=== PATIENT | female | born 1965 | race Caucasian/White ===

== ENCOUNTER 2018-05-21 21:54 | Emergency (ER) | payer SELFPAY ==
[2018-05-21 23:25] LABS: Bilirubin Negative (Negative); Blood, Urine Trace (Negative); Clarity CLEAR (Clear); Glucose, Urine (Dipstick) Negative (Negative); Leukocyte Negative (Negative); Nitrite Negative (Negative); Protein, Urine (Dipstick) Trace mg/dL (Neg-Trace)
[2018-05-21 23:27] LABS: Bacteria/HPF None Seen HPF (None Seen); Hyaline Casts/LPF 0-3 HYALINE CAST LPF (0-3 Hyaline); Pathc Cast-AUWi Flag 0.14 (0-2.49); Squamous Epithelial 0-3 HPF (0-3); WBC/HPF 0-3 HPF (0-3)
[2018-05-21 23:28] LABS: Specific Gravity, Urine 1.045 (1.002-1.036)
[2018-05-21] MEDS ORDERED: Morphine 4 MG/ML VIAL ONE (23:32)
[2018-05-21] MEDS ORDERED: Metoclopramide HCl 10 MG/2 ML VIAL ONE (23:32)
[2018-05-21 23:39] LABS: Cocaine Metabolite Screen Not Detected (NotDetected); Medtox Reader # READER 1; Methamphetamine Not Detected (NotDetected); Phencyclidine (PCP) Not Detected (NotDetected); THC/Cannabinoid Screen Not Detected (NotDetected)
[2018-05-21 23:40] LABS: Amphetamine Not Detected (NotDetected); Barbiturates Screen Not Detected (NotDetected); Benzodiazepine Screen Not Detected (NotDetected); Medtox Control Line Valid? VALID (VALID); Methadone Not Detected (NotDetected); Opiate Screen Detected (NotDetected); Oxycodone Screen Not Detected (NotDetected); Tricyclic Screen Not Detected (NotDetected)
== END 2018-05-22 02:01 | disposition home or self-care (01) ==
LOC: ERS 21:54
DX: R11.2 Nausea with vomiting, unspecified (principal); R10.13 Epigastric pain; I10 Essential (primary) hypertension; Z79.891 Long term (current) use of opiate analgesic; Z79.899 Other long term (current) drug therapy
CPT/HCPCS: 80306; 96374; 96375; J2270; J2765

== ENCOUNTER 2018-05-23 20:18 | Inpatient (IN) | payer SELFPAY ==
[2018-05-23] MEDS ORDERED: Pantoprazole 40 MG VIAL ONE (20:55)
[2018-05-23 21:22] LABS: #Eosinphils 0.5 thou/uL (0.0-0.7); #Lymphocytes 1.2 thou/uL (1.20-3.40); #Monocytes 0.6 thou/uL (0.11-0.59); #Neutrophils 7.2 thou/uL (1.40-6.50); %Basophils 0.2 % (0.0-1.0); %Eosinophils 4.8 % (0.0-10.0); %Lymphocytes 12.6 % (21.0-51.0); %Monocytes 6.2 % (0.0-10.0); %Neutrophils 76.2 % (42.0-75.0); Hemoglobin 16.1 g/dL (12.0-16.0); Mean Corpuscular HGB CONC 33.6 g/dL (32.0-36.0); Mean Corpuscular Hemoglobin 31.6 pg (27.0-31.0); Mean Platelet Volume 8.7 fL (7.4-10.4); Platelet Count 153 thou/uL (130-400); RBC Distribution Width 11.5 % (11.5-14.5); Red Blood Cell (RBC) Count 5.09 mill/uL (4.20-5.40); White Blood Cell (WBC) Count 9.5 thou/uL (4.8-10.8)
[2018-05-23] MEDS ORDERED: Metoclopramide HCl 10 MG/2 ML VIAL ONE (21:28)
[2018-05-23 21:36] LABS: ALT (SGPT) 34 U/L (8-55); AST (SGOT) 28 U/L (5-34); Albumin 4.5 g/dL (3.5-5.0); Alkaline Phosphatase 92 U/L (40-150); Anion Gap 15 mmol/L (10-20); BUN (Urea Nitrogen) 13 mg/dL (9.8-20.1); Bilirubin, Total 0.8 mg/dL (0.2-1.2); Calc. Creatinine Clearance 0 mL/min (70-130); Calcium 9.6 mg/dL (7.8-10.44); Carbon Dioxide 26 mmol/L (22-29); Chloride 99 mmol/L (98-107); Estimated GFR-MDRD 67; Globulin 3.3 g/dL (2.4-3.5); Glucose 102 mg/dL (70-105); Lipase 44 U/L (8-78); Potassium 3.1 mmol/L (3.5-5.1); Protein, Total 7.8 g/dL (6.0-8.3); Sodium 137 mmol/L (136-145)
[2018-05-23] MEDS ORDERED: clonazePAM 1 MG TAB ONE (21:42)
[2018-05-23] MEDS ORDERED: Glycopyrrolate 0.4 MG/ 2 ML VIAL SLOW IVP SCH (22:00)
[2018-05-23] MEDS ORDERED: Glycopyrrolate 0.2 MG/ML 5 ML SYRINGE SLOW IVP SCH (22:15)
[2018-05-23] MEDS ORDERED: diphenhydrAMINE 50 MG/ML VIAL ONE (23:01)
[2018-05-23 23:39] LABS: Bilirubin Negative (Negative); Blood, Urine Small (Negative); Clarity CLEAR (Clear); Glucose, Urine (Dipstick) Negative (Negative); Leukocyte Negative (Negative); Nitrite Negative (Negative); Protein, Urine (Dipstick) Negative (Neg-Trace); Specific Gravity, Urine 1.014 (1.002-1.036); Urobilinogen 0.2 mg/dL (0.2-1.0); pH, Urine 6.5 (5.0-9.0)
[2018-05-23 23:41] LABS: Bacteria/HPF None Seen HPF (None Seen); Hyaline Casts/LPF 0-3 HYALINE CAST LPF (0-3 Hyaline); Pathc Cast-AUWi Flag 0.14 (0-2.49); Squamous Epithelial 0-3 HPF (0-3); WBC/HPF 0-3 HPF (0-3)
[2018-05-24 02:11] VITALS: BMI 26.5
[2018-05-24] MEDS ORDERED: Morphine 4 MG/ML VIAL SLOW IVP SCH (02:45)
[2018-05-24] MEDS: Sodium Chloride 0.9% 1,000 ML IV SCH ×2 (03:12→11:25)
[2018-05-24] MEDS: Ondansetron PF 4 MG/2 ML Vial SLOW IVP PRN (03:13)
[2018-05-24] MEDS ORDERED: Famotidine 20 MG TAB PO SCH (09:00)
[2018-05-24] MEDS: Morphine 4 MG/ML VIAL SLOW IVP PRN ×3 (09:08→23:50)
[2018-05-24] MEDS: Enoxaparin Sodium 40 MG/0.4 ML SYRINGE SC SCH (09:09)
--- NOTE | 2018-05-24 09:20 | HP ---
CHIEF COMPLAINT: Nausea, vomiting, and abdominal pain. HISTORY OF PRESENT ILLNESS: The patient is a 52-year-old female, who lives in [place], who started having some nausea and vomiting and diarrhea approximately 10 days ago. Her diarrhea stopped in few hours, but she had more nausea and vomiting. She went to the emergency room, was treated and released home with prescription for Phenergan. Then, a couple of days later, she went back since she still had nausea, vomiting, and abdominal pain. She was sent to [facility] in [place], where she was treated and released home again. She had a CAT scan done during this time. The patient was told that there was not much going on with her and she was released home, but she had continuous nausea and vomiting along with abdominal pain and last night, she called 911 and she was taken to the emergency room in [facility] in [place] and she got admitted for further evaluation of her continuous problem. She denies any chest pain. She denies any shortness of breath. She has some hot flashes and night sweats, but otherwise she does not have any other issues. The pain in her abdomen is still the same, it is rated at 10 and continuous, is more located in the epigastric area than in hypogastric area. She never had this kind of problem before. PAST MEDICAL HISTORY: Negative. PAST SURGICAL HISTORY: She had 3 C-sections, cholecystectomy, and left ankle reconstruction surgery post trauma. MEDICATIONS: 1. Citalopram for her menopause. 2. [place] p.r.n. for her left ankle pain, she has on and off. FAMILY HISTORY: Father of heart disease at the age of 58 and mother fell and had multiple wounds and she never recovered and she passed at the age of 72. Her brother had a stroke at the age of 44. SOCIAL HISTORY: She denies any alcohol intake, cigarette smoking, or illicit drug use. ALLERGIES: NONE. REVIEW OF SYSTEMS: All 14 systems were reviewed and they were negative except for symptoms mentioned in HPI. PHYSICAL EXAMINATION: GENERAL: She looks sick and very uncomfortable. VITAL SIGNS: Her blood pressure is 142/83, temperature is 98.6, maximal temperature since admission is 99.9 of this morning, pulse 76, respirations 18, and O2 saturation is 93% on room air. HEENT: Head is atraumatic and normocephalic. Eyes are PERRLA. Sclerae are nonicteric. Conjunctivae pinkish. Oral mucosa is dry. NECK: Supple. LUNGS: Clear. HEART: S1 and S2 normal. No S3. No S4. No any murmur. ABDOMEN: Relatively soft and tender to palpation mostly in the epigastric area across the abdomen. There is no guarding. No masses. Peristalsis is very sluggish. EXTREMITIES: No clubbing, cyanosis, or edema. She has good pulses on both tibialis posterior and dorsalis pedis arteries similar bilaterally. NEUROLOGIC: She is alert and oriented x4. There is no any motor or sensory deficits present. Cranial nerves are intact. LABORATORY DATA: Labs showed white count of 9.5, hemoglobin 16.1, hematocrit 47.9, and platelet count is 153,000. Sodium of 137, potassium 3.1, chloride 99, CO2 of 26, and BUN 13. The rest of chemistry within normal limits. Lactic acid 1.5 and lipase 44. Urinalysis showed 15 of ketones and small amount of blood, and no other abnormalities. The CT of the abdomen was done on the May 21, which showed some granulomatous calcifications in the pancreas, atrophic left kidney, and mild left hydronephrosis, which is unchanged: Was mostly nondistended with some mural thickening in the lower descending colon and sigmoid, although the findings of colitis noticed previously have significantly improved. Also, there were some scattered diverticula. According to the previous CAT scan, which I could not localize with radiologist make some comments that there was significant improvement in the colitis involving the sigmoid colon when compared to April 19, 2018, imaging. Electrocardiogram showed normal sinus rhythm with some prolongation of QT interval. This was personally reviewed by me. IMPRESSION: Abdominal pain with nausea and vomiting with some residual findings of colitis according to the CAT scan, which was done a few days ago. The patient is doing somewhat better after IV fluids and the pain medications. PLAN: Plan is to admit her for observation. Condition is fair. Activity, bedrest and bathroom privileges. IV fluids, normal saline at 125 mL/h. Morphine p.r.n. for pain management. GI consult with Dr. Maciel, who is on-call today and DVT prophylaxis with SCDs and Lovenox. Job ID: [id number]
[2018-05-24 09:46] LABS: #Eosinphils 0.3 thou/uL (0.0-0.7); #Lymphocytes 1.7 thou/uL (1.20-3.40); #Monocytes 0.8 thou/uL (0.11-0.59); #Neutrophils 6.2 thou/uL (1.40-6.50); %Basophils 0.4 % (0.0-1.0); %Eosinophils 3.4 % (0.0-10.0); %Lymphocytes 18.6 % (21.0-51.0); %Monocytes 8.6 % (0.0-10.0); Hemoglobin 13.6 g/dL (12.0-16.0); MDiff Complete? YES; Mean Corpuscular HGB CONC 34.7 g/dL (32.0-36.0); Mean Corpuscular Hemoglobin 32.6 pg (27.0-31.0); Mean Corpuscular Volume 93.8 fL (78.0-98.0); Platelet Count 117 thou/uL (130-400); Platelet Morphology Comment Appears Decreased; RBC Distribution Width 11.4 % (11.5-14.5); Red Blood Cell (RBC) Count 4.17 mill/uL (4.20-5.40)
[2018-05-24 10:02] LABS: ALT (SGPT) 24 U/L (8-55); AST (SGOT) 25 U/L (5-34); Albumin 3.7 g/dL (3.5-5.0); Alkaline Phosphatase 73 U/L (40-150); Anion Gap 16 mmol/L (10-20); BUN (Urea Nitrogen) 12 mg/dL (9.8-20.1); Bilirubin, Total 0.6 mg/dL (0.2-1.2); Calc. Creatinine Clearance 91 mL/min (70-130); Calcium 8.8 mg/dL (7.8-10.44); Carbon Dioxide 20 mmol/L (22-29); Chloride 104 mmol/L (98-107); Estimated GFR-MDRD 82; Globulin 2.7 g/dL (2.4-3.5); Glucose 84 mg/dL (70-105); Magnesium 1.9 mg/dL (1.6-2.6); Potassium 3.2 mmol/L (3.5-5.1); Protein, Total 6.4 g/dL (6.0-8.3); Sodium 137 mmol/L (136-145)
[2018-05-24] MEDS ORDERED: Potassium Chloride 20 MEQ in Premix Bag 1 BAG IVPB SCH (12:15)
[2018-05-24] MEDS ORDERED: Potassium Chloride 10 MEQ in Dextrose 5% in Water 1,000 ML IV SCH (17:15)
[2018-05-24] MEDS ORDERED: Potassium Chloride 20 MEQ in Dextrose 5% in Water 1,000 ML IV SCH (19:15)
[2018-05-24] MEDS ORDERED: GoLYTELY 4,000 ml Bottle PO SCH (19:30)
[2018-05-24] MEDS: Dextrose 5% w/ 20 mEq KCl 1,000 ML IV SCH (19:53)
[2018-05-24] MEDS: Pantoprazole 40 MG VIAL IVP SCH (20:38)
[2018-05-24] MEDS: diphenhydrAMINE 50 MG/ML VIAL IVP PRN (23:44)
--- NOTE | 2018-05-24 23:44 | CON ---
DATE OF CONSULTATION: 05/24/2018 This is a GI consult at the request of Dr. Yamile Fernández. HISTORY OF PRESENT ILLNESS: Ms. Mcwilliams is a 52-year-old female who was admitted to the hospital last night for refractory vomiting and abnormal CAT scan. She states that she became ill about 10 days ago when she had sudden onset of vomiting and diarrhea. She estimates she threw up about 20 or 30 times a day and ultimately had to go to the emergency room in [place]. There, she was treated with IV fluids and ultimately released and told that this is most likely a viral illness. She did have a CAT scan at that time that showed some edema in the mesentery just above the affected portion of sigmoid colon, which did show have colitis involving the mid and distal sigmoid colon and rectum. She also mild left hydronephrosis, distended urinary bladder, atrophic but functioning left kidney, small amount of free fluid in the cul-de-sac. She had no leukocytosis at that time. The patient denies did not have any sick contacts. She was under increased stress. She had actually just talked to her sister that day, who has some cancer, who has returned surgery; she lives is out of state. Actually, it is an aunt, but she raised as a sister. Also, she is under more stress with going through a divorce. She denies any prior history of stomach problems or intestinal problems reviewing the previous imaging studies at this hospital back in 05/2014, she had a CAT scan, also performed in [place] when she presented with nausea, vomiting, that showed colonic wall thickening of the descending and sigmoid colon with subtle pericolonic fat stranding of unclear etiology. Asking her about this, she states she has never had an issue with chronic diarrhea, recurrent diarrhea, or bloody stools. She has never had a colonoscopy before. She denies any prior knowledge of Crohn's or ulcerative colitis. In any event, after the first visit to the emergency room at the end of March, she re-presented at the end of April on the . At that time, she had a second CAT scan and that is the one she describes just recently. At that time, the patient was transferred over to [facility] because she was having persistent vomiting, epigastric pain, and ultimately history of IV fluids, Reglan and released home, that was in the 1st. She, however, re-presented back to the hospital yesterday and then was transferred back here for admission. Presently, she states after receiving potassium and IV fluids, she feels better. She is also receiving some morphine. She states that the epigastric pain which is all in the upper abdomen is difficult for her to describe, but feels like a tearing or burning like pain. She denies any fever or chills. She denies any overt diarrhea, but she states she has not vomited since she has been here and feels much better and has an appetite and wants to eat. She is on chronic [place]. She has denies running out of that or having withdrawal from that. She states that is from her primary physician in [place] for chronic right foot pain. She denies alcohol use. She denies significant tobacco use or other drug use. PAST MEDICAL HISTORY: Otherwise negative. PAST SURGICAL HISTORY: Three C sections, cholecystectomy, left ankle surgery post trauma. MEDICATIONS AT HOME: Citalopram which she takes since she went through menopause, it help with mood and [place]. Present medications; 1. Lovenox. 2. Morphine. 3. Zofran. 4. Potassium, she received 1 L of fluid, now it has been stopped. FAMILY HISTORY: Father of heart disease at 58. Mother fell and had multiple wounds and she never recovered and she passed at the age of 72. Brother had stroke at 44. She had an aunt recently who has been diagnosed with rectal cancer in her 50s. SOCIAL HISTORY: Denies any alcohol. She denies smoking. She denies using drugs or marijuana. ALLERGIES: NONE. REVIEW OF SYSTEMS: Negative for headaches, vision changes, fever, or chills. She has lost about 25 pounds recently, stress going through divorce and maybe 10 pounds of this illness. She denies chest pain, shortness of breath, or dyspnea on exertion. 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 She denies any reflux, dysphagia, or odynophagia. She denies any postprandial abdominal pains on a regular basis. She denies any diarrhea on a regular basis or constipation. She has had no rectal bleeding or melena or hematochezia or hematemesis. She denies dysuria, frequency, or urgency. She has no known knowledge of kidney problems, although she does have an atrophic left kidney, mild left hydroureter. She denies any arthralgias, myalgias, or rashes other than a left ankle injury. PHYSICAL EXAMINATION: VITAL SIGNS: Temperature 98, pulse 68, and blood pressure 158/89. LUNGS: Clear. HEART: Regular rate and rhythm. No rubs, gallops, or murmurs. ABDOMEN: Soft. No tenderness, rebound, or guarding. EXTREMITIES: No clubbing, cyanosis, or edema. LABORATORY STUDIES: Sodium 137; potassium 3.2, it was 3.1 yesterday, 3.4 on the ; BUN and creatinine are 12 and 0.74. Liver function tests normal. Albumin 3.2, total protein is 6.4 back on 05/21. Her total protein is 8.4, albumin is 4.4. Lipase is 44. TSH was 0.8. Magnesium was 1.9. Toxicology on 05/21, was negative except for opiates. Urinalysis normal except for 15 ketones, small blood on the UA on 05/23. CAT scan of the abdomen and pelvis from 05/21 was reviewed, films reviewed as well. Some minimal thickening left colon, possibly represent some residual colitis based on the CT from end march. However, there was poor distention at that time as well. ASSESSMENT: Nausea and vomiting, it is unclear if this is a postviral gastroparesis. It does not seem that she has was having withdrawal episodes from her narcotics, which she is on chronically. She probably is very dehydrated and got electrolyte depleted and just could not overcome that. She also is under stress with divorce going on and a sister/aunt who is going through cancer right now. The possibility of inflammatory bowel disease is something to be considered as she has had sigmoid thickening in her sigmoid colon for many years back in 2014, and in March of this year and April this year. RECOMMENDATIONS: 1. I would continue IV fluids. Check her magnesium and phosphorus. She needs IV fluids, potassium. She has been throwing up for 10 days. She needs a PPI and she needs an EGD tomorrow to make sure she does not have a Bee or other etiologies for vomiting. If she does not have any findings there and keep some vomiting, an ultrasound of the gallbladder to rule out gallstone disease would be reasonable. 2. With regard to her colon changes noted on three different CAT scans since 2014 with family history of colon cancer, and the young age, I have recommended she have a colonoscopy. She thinks she can do the prep now. She is not nauseated. If she cannot, we will have to defer that to a later time. Job ID: [id number]
[2018-05-25] MEDS: Ondansetron PF 4 MG/2 ML Vial SLOW IVP PRN ×3 (00:52→20:04)
[2018-05-25] MEDS ORDERED: hydrALAZINE 20 MG/ML VIAL SLOW IVP SCH (03:00)
[2018-05-25] MEDS: Acetaminophen/Codeine 30-300mg Tablet PO PRN ×2 (03:13→21:16)
[2018-05-25] MEDS ORDERED: diphenhydrAMINE 50 MG/ML VIAL IVP SCH (04:15)
[2018-05-25] MEDS: Morphine 4 MG/ML VIAL SLOW IVP PRN ×3 (04:22→20:10)
[2018-05-25] MEDS: Dextrose 5% w/ 20 mEq KCl 1,000 ML IV SCH ×3 (05:53→21:14)
--- NOTE | 2018-05-25 08:14 | PRG ---
DATE OF SERVICE: 05/25/2018 SUBJECTIVE: The patient vomited last night. She did not get much sleep. She is getting ready for her EGD this morning. OBJECTIVE: VITAL SIGNS: Blood pressure is 151/85, temperature is 98, respiratory rate is 16, pulse is 76, and O2 saturation is 95% on room air. HEENT: Head is atraumatic and normocephalic. Eyes are PERRLA. Sclerae are nonicteric. Oral mucosa is dry. NECK: Supple. LUNGS: Clear. HEART: S1 and S2 normal. ABDOMEN: Soft, it is tender in hypogastric area. No guarding. No masses. EXTREMITIES: No clubbing, cyanosis, or edema. NEUROLOGICAL: She is alert and oriented x4. There is no any sensory or motor deficits present. Cranial nerves are intact. LABORATORY DATA: Pending. IMPRESSION AND PLAN: Abdominal pain with nausea and vomiting. The patient is going to have esophagogastroduodenoscopy done this morning by Dr. Maciel. We will continue IV fluids and antiemetics. We will continue morphine p.r.n. for pain management. Continue deep vein thrombosis prophylaxis with SCDs and Lovenox. We will obtain abdominal ultrasound. Job ID: [id number]
[2018-05-25 08:50] LABS: Phosphorus 2.8 mg/dL (2.3-4.7)
[2018-05-25 08:57] LABS: ALT (SGPT) 25 U/L (8-55); AST (SGOT) 21 U/L (5-34); Alkaline Phosphatase 81 U/L (40-150); Anion Gap 12 mmol/L (10-20); BUN (Urea Nitrogen) 7 mg/dL (9.8-20.1); Bilirubin, Total 0.7 mg/dL (0.2-1.2); Calc. Creatinine Clearance 91 mL/min (70-130); Calcium 9.3 mg/dL (7.8-10.44); Carbon Dioxide 25 mmol/L (22-29); Chloride 98 mmol/L (98-107); Estimated GFR-MDRD 82; Globulin 3.1 g/dL (2.4-3.5); Glucose 117 mg/dL (70-105); Potassium 3.3 mmol/L (3.5-5.1); Protein, Total 7.1 g/dL (6.0-8.3); Sodium 132 mmol/L (136-145)
--- NOTE | 2018-05-25 10:44 | ULT ---
ABDOMINAL ULTRASOUND: 05/25/2018 PROVIDED CLINICAL HISTORY: Abdominal pain. CORRELATION: 05/21/2018 FINDINGS: The visualized abdominal aorta, IVC, and pancreas appear normal. The liver demonstrates no evidence for mass or intrahepatic biliary ductal dilatation. The common du ct is not dilated. The gallbladder is not visualized, compatible with the provided clinical history of a prior cholecystectomy. The kidneys demonstrate no evidence for mass. The left kidney is small, with respect to the right, m easuring about 9.2 cm in craniocaudal dimension versus 12.1 cm on the right. Fullness of the left re nal collecting system is similar to the CT examination and is of uncertain significance. The spleen is normal in size and demonstrates granulomata. IMPRESSION: 1. Renal size asymmetry, left smaller than right. 2. Prominence of the left renal collecting system, similar to the prior examination and of uncertain significance. POS: [facility]
[2018-05-25] MEDS: Pantoprazole 40 MG VIAL IVP SCH ×2 (12:14→20:06)
[2018-05-25] MEDS: Enoxaparin Sodium 40 MG/0.4 ML SYRINGE SC SCH (12:14)
[2018-05-25] MEDS: Citalopram 20 MG TAB PO SCH (12:14)
--- NOTE | 2018-05-25 12:59 | OP ---
DATE OF PROCEDURE: 05/25/2018 PREPROCEDURE DIAGNOSES: 1. Persistent nausea and vomiting for over 10 days. 2. Family history of colon cancer, and secondary role of a young age. 3. Reported thickening of the descending and sigmoid colon consistent with colitis on CT. POSTPROCEDURE DIAGNOSES: 1. Severe distal esophagitis with erosions and exudate consistent with a emetogenic injury. Biopsies obtained. 2. Otherwise normal esophagus. 3. Normal stomach from retroflexed views. 4. Normal duodenum to the third portion. 5. Normal ileum and colonoscopy with no signs of colitis. RECOMMENDATIONS: 1. IV fluids. 2. PPI. 3. Clear liquids. 4. Emetic control. 5. If nausea, vomiting persists, consider imaging of the brain, consider narcotic withdrawal. Consider gastroparesis. ANESTHESIA: TIVA. DESCRIPTION OF PROCEDURE: The patient was informed of the risks, benefits, possible complications of endoscopy including perforation, perforation risk, medication aspiration, informed consent was obtained. The patient was brought to endoscopy suite where she was sedated in gradual fashion. Once she was comfortable, a bite block was placed inside her orifice. The endoscope was advanced to the esophagus, stomach, second and third portion of the duodenum and slowly removed. The prep was good. There was no residual food or material in the stomach. There was no signs of gastritis, erosions, or ulcers. Retroflexed views in the stomach were normal. The duodenum was normal at 3rd portion. The scope was brought to the esophagus where there was some erythema and exudate in the distal esophagus and mid esophagus consistent with emetogenic injury and reflux probably from repetitive vomiting. Biopsies were taken and submitted to Pathology. The scope was removed. The patient was turned to the room and a rectal exam was performed which was normal. The scope was advanced through the colon to the cecum, which was identified by the ileocecal valve, appendiceal orifice. The prep was fair to poor. About a L fluid used to irrigate the colon, looked clear up as best we could. This was adequate to identify polyps greater than 7 mm in size. There was no evidence of ileitis. The colon was normal. There was no signs of diverticulitis or colitis. Retroflexed views in the rectum were normal. The scope was removed. The patient tolerated the procedure well. There were no complications. Job ID: [id number]
[2018-05-25] MEDS: Potassium Chloride 20 MEQ TAB PO SCH ×2 (15:25→15:28)
[2018-05-25] MEDS ORDERED: PROPOFOL 200 MG/20 ML VIAL ONE (15:29)
[2018-05-25] MEDS ORDERED: Esmolol 100 MG/10 ML VIAL ONE (15:29)
[2018-05-25] MEDS ORDERED: ALPRAZolam 0.5 MG TAB PO SCH (17:30)
[2018-05-25] MEDS: diphenhydrAMINE 50 MG/ML VIAL IVP PRN (21:14)
[2018-05-26] MEDS: Morphine 4 MG/ML VIAL SLOW IVP PRN (00:55)
[2018-05-26] MEDS: Acetaminophen/Codeine 30-300mg Tablet PO PRN ×2 (05:41→13:02)
[2018-05-26] MEDS: Dextrose 5% w/ 20 mEq KCl 1,000 ML IV SCH ×2 (07:34→20:11)
[2018-05-26] MEDS: Citalopram 20 MG TAB PO SCH (07:34)
[2018-05-26] MEDS: Enoxaparin Sodium 40 MG/0.4 ML SYRINGE SC SCH (07:35)
[2018-05-26] MEDS: Pantoprazole 40 MG VIAL IVP SCH ×2 (07:35→20:10)
[2018-05-26 10:00] LABS: Anion Gap 12 mmol/L (10-20); BUN (Urea Nitrogen) 6 mg/dL (9.8-20.1); Calc. Creatinine Clearance 86 mL/min (70-130); Calcium 9.6 mg/dL (7.8-10.44); Carbon Dioxide 26 mmol/L (22-29); Chloride 98 mmol/L (98-107); Estimated GFR-MDRD 76; Glucose 120 mg/dL (70-105); Magnesium 2.2 mg/dL (1.6-2.6); Phosphorus 3.1 mg/dL (2.3-4.7); Potassium 3.3 mmol/L (3.5-5.1); Sodium 133 mmol/L (136-145)
--- NOTE | 2018-05-26 13:43 | PRG ---
DATE OF SERVICE: 05/26/2018 SUBJECTIVE: The patient is seen and examined at bedside. She vomited yesterday after she had broth. She is feeling slightly better this morning. OBJECTIVE: VITAL SIGNS: Blood pressure is 117/76, pulse is 71, temperature is 97.9, respirations 16, and O2 saturation is 96% on room air. HEENT: Her head is atraumatic and normocephalic. Eyes are PERRLA. Sclerae are nonicteric. Oral mucosa is moist. NECK: Supple. No lymphadenopathy. Thyroid is not palpable. LUNGS: Clear. HEART: S1 and S2 are normal. ABDOMEN: Soft and nontender. Bowel sounds are present. No organomegaly. EXTREMITIES: No clubbing, cyanosis, or edema. NEUROLOGIC: She is alert and oriented x4. There are no any motor or sensory deficits. Cranial nerves are intact. LABORATORY DATA: Labs showed a sodium of 133, potassium 3.3, chloride 96, CO2 of 26, BUN 6, creatinine 0.79, glucose 120, and the rest of chemistry within normal limits. Phosphorus 3.1 and magnesium 2.2. IMPRESSION: Nausea and vomiting with some abdominal pain. The patient was scoped yesterday and beside of severe esophagitis secondary to vomiting, there were no any other findings on EGD and colonoscopy. Ultrasound of the abdomen showed prominence of the left renal collecting system, which is similar to the prior examination and of uncertain significance. PLAN: Plan is to continue IV fluids. Obtain radionuclide gastric emptying studies to rule out gastroparesis and if this is negative, probably we will have to get Urology consultation if the ultrasound findings contribute to this vomiting and for now, we will continue antiemetics p.r.n. Job ID: [id number]
--- NOTE | 2018-05-26 15:42 | EKG ---
Test Reason : Blood Pressure : / mmHG Vent. Rate : 073 BPM Atrial Rate : 073 BPM P-R Int : 134 ms QRS Dur : 078 ms QT Int : 440 ms P-R-T Axes : 060 054 048 degrees QTc Int : 484 ms Normal sinus rhythm Prolonged QT Abnormal ECG Confirmed by MATTHEW TRIPATHI ([id number]) on 05/26/2018 3:41:57 PM Referred By: RUSLAN Confirmed By:MATTHEW TRIPATHI
--- NOTE | 2018-05-26 19:54 | PRG ---
DATE OF SERVICE: 05/26/2018 SUBJECTIVE: Ms. Mcwilliams is resting in bed. Today is first day. She states she has not thrown up. OBJECTIVE: VITAL SIGNS: Temperature is 98, pulse 78, blood pressure is 106/62. LUNGS: Clear. HEART: Regular rate and rhythm. ABDOMEN: Soft and nontender. LABORATORY DATA: Sodium 133, potassium 3.3, BUN and creatinine are 6 and 0.79. ASSESSMENT: 1. Hypokalemia, being replaced. 2. Nausea and vomiting, improving. It is unclear, the etiology of this. Upper endoscopy yesterday was not revealing. She has a gastric emptying scan ordered by Internal Medicine for tomorrow. 3. Abdominal pain, seems to be markedly improved. RECOMMENDATIONS: Wean off the morphine. It is going to make her gastric emptying scan really not interpretable, so we will go and stop that tonight. Job ID: [id number]
[2018-05-26] MEDS: Acetaminophen 325 MG TAB PO PRN (20:11)
[2018-05-27] MEDS: Dextrose 5% w/ 20 mEq KCl 1,000 ML IV SCH ×2 (05:55→18:23)
[2018-05-27] MEDS: Ondansetron PF 4 MG/2 ML Vial SLOW IVP PRN ×3 (08:14→17:15)
[2018-05-27] MEDS: Pantoprazole 40 MG VIAL IVP SCH ×3 (08:15→20:13)
[2018-05-27] MEDS: Citalopram 20 MG TAB PO SCH (08:15)
[2018-05-27] MEDS: Enoxaparin Sodium 40 MG/0.4 ML SYRINGE SC SCH (08:15)
--- NOTE | 2018-05-27 10:16 | NM ---
NUCLEAR MEDICINE GASTRIC EMPTYING STUDY WITH MEAL: HISTORY: Vomiting. COMPARISON: Abdomen and pelvis CT from 05/21/2018. FINDINGS: The patient was given 2.1 millicuries of technetium 99m sulfur colloid orally in eggs. The patient v omited 5 minutes after the immediate image. IMPRESSION: Incomplete examination as the patient vomited the radiotracer. POS: [facility]
[2018-05-27] MEDS ORDERED: Promethazine HCl 25 MG/ML VIAL IM/IV PRN ×2 (10:51→17:00)
[2018-05-27] MEDS: diphenhydrAMINE 50 MG/ML VIAL IVP PRN ×2 (11:30→18:24)
[2018-05-27] MEDS: Acetaminophen 325 MG TAB PO PRN ×2 (12:50→20:12)
[2018-05-27] MEDS ORDERED: Promethazine HCl 25 MG/ML VIAL IM SCH (13:15)
--- NOTE | 2018-05-27 15:39 | PRG ---
DATE OF SERVICE: 05/27/2018 SUBJECTIVE: The patient was seen and examined at bedside. She is not doing well. She was not able to finish her gastric emptying studies. This morning, she started vomiting again. OBJECTIVE: VITAL SIGNS: Blood pressure is 168/84, pulse is 84, respiratory rate is 16, O2 saturation is 96 on room air. HEENT: Head is atraumatic and normocephalic. Eyes are PERRLA. Sclerae nonicteric. Oral mucosa is dry. NECK: Supple. No lymphadenopathy. LUNGS: Clear. HEART: S1 and S2 normal. ABDOMEN: Soft. Slightly tender in the epigastric area to be center. No guarding. No masses. EXTREMITIES: No clubbing, cyanosis, or edema neurological examination she is alert and oriented x4. There is no any motor or sensory deficits present. Cranial nerves are intact. LABORATORY DATA: None today. IMPRESSION: Intractable nausea and vomiting of unclear etiology with negative GI workup. The patient was not able to complete her gastric emptying studies and we will continue IV fluids. We will add Phenergan to Zofran, so we will admit her to full admission from observation and try a her gastric emptying studies tomorrow if she is more stable. Job ID: [id number]
[2018-05-27 16:17] LABS: Anion Gap 15 mmol/L (10-20); BUN (Urea Nitrogen) 8 mg/dL (9.8-20.1); Calc. Creatinine Clearance 86 mL/min (70-130); Calcium 10.1 mg/dL (7.8-10.44); Carbon Dioxide 25 mmol/L (22-29); Chloride 99 mmol/L (98-107); Estimated GFR-MDRD 76; Glucose 149 mg/dL (70-105); Potassium 3.8 mmol/L (3.5-5.1); Sodium 135 mmol/L (136-145)
[2018-05-27] MEDS ORDERED: Promethazine HCl 12.5 MG in Sodium Chloride 0.9% 50 ML IVPB PRN (17:02)
[2018-05-27] MEDS ORDERED: Metoclopramide HCl 10 MG/2 ML VIAL IVP PRN (17:12)
--- NOTE | 2018-05-27 18:31 | CT ---
HEAD CT WITHOUT CONTRAST 05/27/18 HISTORY: Refractory vomiting. Nausea. Headache. COMPARISON: None. FINDINGS: calvarium appears to be intact. Adequate aeration of the sinuses and mastoid air cells. No parenchymal hemorrhage. No extra-axial hematoma. No midline shift. Basilar cisterns are patent. Br ain volume, age appropriate. Cortical renae-white matter differentiation is preserved. Ventricles and sulci are patent and symmetric. IMPRESSION: No acute intracranial process. POS: [facility]
[2018-05-27] MEDS ORDERED: hydrALAZINE 20 MG/ML VIAL SLOW IVP PRN (20:37)
--- NOTE | 2018-05-28 00:33 | PRG ---
DATE OF SERVICE: 05/27/2018 SUBJECTIVE: Ms. Mcwilliams says she has had a bad day. She has been throwing up all day. I have asked her why, she states because her stomach hurts. She denies any headache. They have tried Phenergan 6.25 IM, and Phenergan 12.5 IV has been tried, Zofran 4. Other medications, she is still on Tylenol IV q.12. OBJECTIVE: VITAL SIGNS: Temperature is 98, pulse 66, respiratory rate 16, blood pressure 172/101. GENERAL: She is resting comfortably in bed. She is alert and oriented to person, place, and time. HEENT: Conjunctivae and sclerae are clear. Mucous membranes are somewhat dry. SKIN: Warm and dry. ABDOMEN: Nontender. There is no rebound. There is no guarding. LABORATORY STUDIES: There has been no CBC since the . Sodium 135, potassium 3.8, BUN and creatinine are 8 and 0.79, calcium is 10. Liver function tests are normal, lipase is normal previously. Results back from endoscopy, showed mild reflux esophagitis, presumptively from vomiting and GERD. ASSESSMENT: Persistent nausea. This was doing well yesterday, when I saw her, the only thing that is changed really in the past 24 hours medication adorno is her morphine was discontinued, she was using that about every 4 to 6 hours 2 mg. She had a CAT scan with no abnormalities abdominally. She has had upper and lower endoscopies, negative. She has had an ultrasound of her abdomen, showed a little renal asymmetry and evidence of previous cholecystectomy. She had a normal lipase. She is going through divorce now. Differential diagnosis includes depression, anxiety leading to nausea and vomiting, narcotic withdrawal or dependence leading to nausea and vomiting. Intracranial process maybe needs to beruled out. We will go ahead and get a CAT scan. RECOMMENDATIONS: For controlling symptoms, I do not agree with placing an NG tube. She can continue on IV fluids. Her CBC needs to be checked tomorrow and we will give her some IV Reglan efrain Job ID: [id number]
[2018-05-28] MEDS: diphenhydrAMINE 50 MG/ML VIAL IVP PRN (01:00)
[2018-05-28] MEDS: Acetaminophen 325 MG TAB PO PRN (02:16)
[2018-05-28 05:49] LABS: #Eosinphils 0.1 thou/uL (0.0-0.7); #Lymphocytes 2.2 thou/uL (1.20-3.40); #Monocytes 0.8 thou/uL (0.11-0.59); #Neutrophils 8.8 thou/uL (1.40-6.50); %Basophils 0.4 % (0.0-1.0); %Eosinophils 0.6 % (0.0-10.0); %Lymphocytes 18.4 % (21.0-51.0); %Monocytes 6.7 % (0.0-10.0); %Neutrophils 73.9 % (42.0-75.0); Hemoglobin 14.7 g/dL (12.0-16.0); Mean Corpuscular Hemoglobin 32.6 pg (27.0-31.0); Mean Corpuscular Volume 95.6 fL (78.0-98.0); Mean Platelet Volume 8.9 fL (7.4-10.4); Platelet Count 230 thou/uL (130-400); RBC Distribution Width 11.4 % (11.5-14.5); Red Blood Cell (RBC) Count 4.51 mill/uL (4.20-5.40); White Blood Cell (WBC) Count 11.9 thou/uL (4.8-10.8)
[2018-05-28] MEDS: Dextrose 5% w/ 20 mEq KCl 1,000 ML IV SCH (05:51)
[2018-05-28 06:10] LABS: ALT (SGPT) 33 U/L (8-55); AST (SGOT) 24 U/L (5-34); Albumin 4.2 g/dL (3.5-5.0); Alkaline Phosphatase 80 U/L (40-150); Anion Gap 13 mmol/L (10-20); BUN (Urea Nitrogen) 8 mg/dL (9.8-20.1); Bilirubin, Total 0.7 mg/dL (0.2-1.2); Calc. Creatinine Clearance 88 mL/min (70-130); Calcium 9.7 mg/dL (7.8-10.44); Carbon Dioxide 26 mmol/L (22-29); Chloride 97 mmol/L (98-107); Estimated GFR-MDRD 78; Glucose 145 mg/dL (70-105); Potassium 3.2 mmol/L (3.5-5.1); Protein, Total 7.2 g/dL (6.0-8.3); Sodium 133 mmol/L (136-145)
[2018-05-28] MEDS: Pantoprazole 40 MG VIAL IVP SCH (09:02)
[2018-05-28] MEDS: Enoxaparin Sodium 40 MG/0.4 ML SYRINGE SC SCH (09:04)
[2018-05-28] MEDS: rOPINIRole HCl 0.25 MG TAB PO SCH ×2 (10:29→15:57)
[2018-05-28 15:34] VITALS: BP 127/81; TEMP 97.9
--- NOTE | 2018-05-29 08:15 | DIS ---
DATE OF ADMISSION: 05/27/2018 DATE OF DISCHARGE: 05/28/2018 FINAL DIAGNOSES: 1. Intractable nausea and vomiting of unclear etiology. We think that this is psychologic related to her current condition. She is going through a bad divorce. 2. Hypokalemia, replaced. 3. Hyponatremia, replaced. CONSULTANTS: Ruy Maciel MD of Gastrointestinal Service. PROCEDURE: EGD, which showed severe distal esophagitis with erosions and exudate consistent with emetogenic injury, otherwise normal EGD and normal colonoscopy. No signs of colitis. HISTORY OF PRESENT ILLNESS: The patient is a 52-year-old female, who was admitted to the hospital with a 10-day history of nausea, vomiting, and some diarrhea. The diarrhea stopped quickly. She went to emergency room several times. Finally, she called EMS and came to [facility] in [place]. She had a CAT scan done in the emergency room and apparently showed significant improvement with colitis she was diagnosed on some previous recent imaging in the area of sigmoid colon when comparing to April 19, 2018. She was admitted to the hospital for management of her problem with IV fluids, she received in the emergency room. Her white count at the time of admission was 9.5, hemoglobin 16.1, hematocrit 47.9, and platelet count 153,000. Sodium was 137, potassium 3.1, chloride 99, CO2 is 26, BUN 13, lactic acid was 1.5. Urinalysis showed 15 of ketones and small amount of blood. CT of the abdomen, which was done on the 21 of May showed some granulomatous calcification in the pancreas, atrophic left kidney, and mild left hydronephrosis, which was unchanged with the previous study. There was some mural thickening in the lower descending colon and sigmoid, although the findings of colitis were noticed significantly improved comparing to the previous study. Electrocardiogram showed normal sinus rhythm with some prolongation of QT interval. Got admitted to the hospital. Her potassium was replaced. She was given IV fluids and was given some Zofran and some Phenergan. Exploration Engineer was consulted, who did the scoping, which did not show any etiology of her vomiting, only severe esophagitis secondary to vomiting. Colonoscopy was negative too. She underwent ultrasound of the abdomen, which showed some renal size asymmetry, left smaller than right and prominence of the left renal collecting system. Also, she tried to have gastric emptying studies, but she was not able to keep anything down after she was given the bolus to swallow, so this was canceled. She also underwent CT of the brain, which did not show any acute abnormalities. Finally, her vomiting subsided and she is ready to go. PHYSICAL EXAMINATION: VITAL SIGNS: Her blood pressure is 127/81, pulse is 95, temperature is 97.9, respiratory rate is 14, and O2 saturation is 94% on room air. She is seen and examined before she is discharged. LUNGS: Clear. ABDOMEN: Soft, nontender. EXTREMITIES: No clubbing, cyanosis, or edema. DIET: She is discharged on a regular diet. ACTIVITIES: As tolerated. MEDICATIONS AT THE TIME OF DISCHARGE: 1. Promethazine 25 mg per rectum q.6 hours p.r.n. as needed. 2. Tylenol just plain regular for the pain. 3. Ropinirole 0.25 mg 3 times a day. FOLLOWUP: She is going to follow up with her primary care physician in a week and we do not want her to take any opioids for the pain or SSRI's she was taking at home prior to this hospitalization and the patient was seen and examined before she is discharged. TIME SPENT: Discharge time is less than 30 minutes. Job ID: [id number]
== END 2018-05-28 18:05 | disposition home or self-care (01) | DRG 392 ==
LOC: ERS 20:18 → SURG B 05-24 00:13 → OBSVTOIN 05-27 17:14
PROVIDERS: ADMIT Hospitalist; ATTEND Hospitalist
PROC: 0DB38ZX Excision of Lower Esophagus, Via Natural or Artificial Opening Endoscopic, Diagnostic (ICD-10-PCS; principal; 2018-05-25)
PROC: 0DJD8ZZ Inspection of Lower Intestinal Tract, Via Natural or Artificial Opening Endoscopic (ICD-10-PCS; 2018-05-25)
DX: R11.2 Nausea with vomiting, unspecified (principal); E87.1 Hypo-osmolality and hyponatremia; K22.10 Ulcer of esophagus without bleeding; N13.4 Hydroureter; E87.6 Hypokalemia; R19.7 Diarrhea, unspecified; F32.9 Major depressive disorder, single episode, unspecified; R10.9 Unspecified abdominal pain; K21.9 Gastro-esophageal reflux disease without esophagitis
CPT/HCPCS: 36415; 51701; 70450; 76700; 78264; 80048; 80053; 81003; 81015; 83605; 83690; 83735; 84100; 85025; 88305; 88312; 88313; 88341; 88342; 93005; 93010; 96361; 96365; 96366; 96375; A4353; A9541; C9113; J0360; J1200; J1650; J2270; J2405; J2550; J2704; J2765; J3480; J7050; J7070

== ENCOUNTER 2018-05-31 01:54 | Emergency (ER) | payer SELFPAY ==
[2018-05-31 03:25] LABS: #Basophils 0.1 thou/uL (0.0-0.2); #Eosinphils 0.1 thou/uL (0.0-0.7); #Lymphocytes 2.4 thou/uL (1.20-3.40); #Monocytes 0.6 thou/uL (0.11-0.59); #Neutrophils 8.4 thou/uL (1.40-6.50); %Basophils 1.1 % (0.0-1.0); %Eosinophils 0.9 % (0.0-10.0); %Lymphocytes 20.8 % (21.0-51.0); %Monocytes 4.8 % (0.0-10.0); %Neutrophils 72.3 % (42.0-75.0); Hemoglobin 13.7 g/dL (12.0-16.0); Mean Corpuscular HGB CONC 32.8 g/dL (32.0-36.0); Mean Corpuscular Hemoglobin 31.5 pg (27.0-31.0); Mean Corpuscular Volume 95.9 fL (78.0-98.0); Mean Platelet Volume 8.2 fL (7.4-10.4); Platelet Count 245 thou/uL (130-400); RBC Distribution Width 11.6 % (11.5-14.5); Red Blood Cell (RBC) Count 4.37 mill/uL (4.20-5.40); White Blood Cell (WBC) Count 11.6 thou/uL (4.8-10.8)
[2018-05-31] MEDS ORDERED: Promethazine HCl 25 MG/ML VIAL ONE (03:25)
[2018-05-31 03:43] LABS: ALT (SGPT) 43 U/L (8-55); AST (SGOT) 35 U/L (5-34); Albumin 4.5 g/dL (3.5-5.0); Alkaline Phosphatase 86 U/L (40-150); Anion Gap 12 mmol/L (10-20); BUN (Urea Nitrogen) 10 mg/dL (9.8-20.1); Bilirubin, Total 0.7 mg/dL (0.2-1.2); Calc. Creatinine Clearance 0 mL/min (70-130); Calcium 9.7 mg/dL (7.8-10.44); Carbon Dioxide 27 mmol/L (22-29); Chloride 98 mmol/L (98-107); Estimated GFR-MDRD 82; Glucose 123 mg/dL (70-105); Potassium 3.3 mmol/L (3.5-5.1); Protein, Total 7.5 g/dL (6.0-8.3); Sodium 134 mmol/L (136-145)
--- NOTE | 2018-05-31 08:30 | RAD ---
SINGLE VIEW OF THE CHEST: COMPARISON: 05/27/2014. HISTORY: Abdominal pain and chest pain. FINDINGS: Single view of the chest shows a normal sized cardiomediastinal silhouette. There is no evidence of c onsolidation, mass, or pleural effusion. The bones are unremarkable. IMPRESSION: No evidence of acute cardiopulmonary disease. POS: [facility]
== END 2018-05-31 06:48 | disposition home or self-care (01) ==
LOC: ERS 01:54
DX: R10.33 Periumbilical pain (principal); R11.2 Nausea with vomiting, unspecified; E87.6 Hypokalemia; I10 Essential (primary) hypertension
CPT/HCPCS: 36415; 71045; 80053; 83690; 84484; 85025; 93005; 96365; J2550

== ENCOUNTER 2018-09-21 16:15 | Observation (INO) | payer SELFPAY ==
--- NOTE | 2018-09-21 17:59 | CT ---
EXAM: CT brain without contrast HISTORY: Syncope COMPARISON: 05/27/2018 TECHNIQUE: Multiple contiguous axial images were obtained and a CT of the brain without contrast. FINDINGS: The brain is normal in morphology and attenuation without focal lesions or confluent areas of infarction. There is no evidence of hydrocephalus, intracranial hemorrhage, or extra-axial fluid collection. The calvarium and overlying soft tissues are unremarkable. The visualized paranasal sinuses and masto id air cells are well aerated. IMPRESSION: No evidence of acute intracranial abnormality
[2018-09-21 18:51] LABS: #Monocytes 0.3 thou/uL (0.11-0.59); #Neutrophils 11.9 thou/uL (1.40-6.50); %Eosinophils 0.3 % (0.0-10.0); %Lymphocytes 7.4 % (21.0-51.0); %Monocytes 2.5 % (0.0-10.0); %Neutrophils 89.8 % (42.0-75.0); Hemoglobin 14.7 g/dL (12.0-16.0); Mean Corpuscular HGB CONC 33.7 g/dL (32.0-36.0); Mean Corpuscular Hemoglobin 32.3 pg (27.0-31.0); Mean Corpuscular Volume 95.7 fL (78.0-98.0); Mean Platelet Volume 9.1 fL (7.4-10.4); Platelet Count 189 thou/uL (130-400); RBC Distribution Width 10.9 % (11.5-14.5); Red Blood Cell (RBC) Count 4.55 mill/uL (4.20-5.40); White Blood Cell (WBC) Count 13.3 thou/uL (4.8-10.8)
[2018-09-21 19:06] LABS: Bilirubin Negative (Negative); Blood, Urine Negative (Negative); Clarity CLEAR (Clear); Glucose, Urine (Dipstick) 100 mg/dL (Negative); Leukocyte Small (Negative); Nitrite Negative (Negative); Protein, Urine (Dipstick) Negative (Neg-Trace)
[2018-09-21 19:10] LABS: Bacteria/HPF None Seen HPF (None Seen); Pathc Cast-AUWi Flag 0.68 (0-2.49); RBC/HPF 0-3 HPF (0-3)
[2018-09-21 19:15] LABS: ALT (SGPT) 14 U/L (8-55); AST (SGOT) 16 U/L (5-34); Albumin 4.8 g/dL (3.5-5.0); Alkaline Phosphatase 93 U/L (40-150); Anion Gap 15 mmol/L (10-20); BUN (Urea Nitrogen) 11 mg/dL (9.8-20.1); Bilirubin, Total 0.7 mg/dL (0.2-1.2); Calc. Creatinine Clearance 0 mL/min (70-130); Calcium 9.9 mg/dL (7.8-10.44); Carbon Dioxide 25 mmol/L (22-29); Chloride 102 mmol/L (98-107); Estimated GFR-MDRD 70; Globulin 3.4 g/dL (2.4-3.5); Glucose 156 mg/dL (70-105); Lipase 12 U/L (8-78); Potassium 3.9 mmol/L (3.5-5.1); Protein, Total 8.2 g/dL (6.0-8.3); Sodium 138 mmol/L (136-145)
[2018-09-21 19:22] LABS: Hyaline Casts/LPF 0-3 HYALINE CAST LPF (0-3 Hyaline)
[2018-09-21] MEDS ORDERED: Morphine 4 MG/ML VIAL ONE (19:53)
[2018-09-21] MEDS ORDERED: Ondansetron PF 4 MG/2 ML Vial ONE (19:54)
[2018-09-21] MEDS ORDERED: Haloperidol Lactate 5 MG/ML VIAL ONE (20:18)
[2018-09-21] MEDS ORDERED: diphenhydrAMINE 50 MG/ML VIAL ONE (20:18)
[2018-09-22] MEDS ORDERED: Promethazine HCl 25 MG in Sodium Chloride 0.9% 50 ML IVPB PRN
[2018-09-22] MEDS ORDERED: Ondansetron PF 4 MG/2 ML Vial IVP PRN
[2018-09-22] MEDS ORDERED: Ondansetron ODT 4 MG TAB SL PRN
[2018-09-22] MEDS ORDERED: Ketorolac Tromethamine 60 MG/2 ML VIAL ONE (00:21)
[2018-09-22] MEDS ORDERED: Promethazine HCl 25 MG/ML VIAL ONE (00:21)
[2018-09-22] MEDS ORDERED: Acetaminophen 325 MG TAB PO PRN (05:09)
[2018-09-22] MEDS ORDERED: Acetaminophen 325 MG TAB ONE ×2 (05:12)
[2018-09-22] MEDS ORDERED: Iopamidol 370 76% 100 ML VIAL ONE (07:55)
[2018-09-22 09:03] VITALS: BMI 28.4
[2018-09-22] MEDS ORDERED: hydrALAZINE 20 MG/ML VIAL SLOW IVP PRN (09:10)
[2018-09-22 09:21] LABS: Pregnancy Test - Urine (BHCG) Negative (Negative)
[2018-09-22 09:22] LABS: Pregu Control Background? CLEAR/WHITE (CLR/WHITE); Pregu Control Bar Appear? YES (CONTROL BAR)
[2018-09-22 09:31] LABS: Amphetamine Not Detected (NotDetected); Barbiturates Screen Not Detected (NotDetected); Benzodiazepine Screen Not Detected (NotDetected); Cocaine Metabolite Screen Not Detected (NotDetected); Medtox Control Line Valid? VALID (VALID); Medtox Reader # READER 1; Methadone Not Detected (NotDetected); Methamphetamine Not Detected (NotDetected); Opiate Screen Detected (NotDetected); Oxycodone Screen Not Detected (NotDetected); Phencyclidine (PCP) Not Detected (NotDetected); THC/Cannabinoid Screen Not Detected (NotDetected); Tricyclic Screen Not Detected (NotDetected)
[2018-09-22] MEDS: Lactated Ringer's 1,000 ML IV SCH ×3 (10:24→20:53)
[2018-09-22] MEDS: Famotidine/PF 20 mg/2ml Vial SLOW IVP SCH ×2 (10:26→20:54)
[2018-09-22] MEDS: Ondansetron PF 4 MG/2 ML Vial IVP PRN ×2 (10:27→18:53)
--- NOTE | 2018-09-22 11:33 | CT ---
EXAM: CT ABDOMEN AND PELVIS HISTORY: Nausea. Vomiting. Abdominal pain. COMPARISON: 05/21/2018 Procedure: Multiple contiguous axial images were obtained and a CT of the abdomen and pelvis with IV contrast. C oronal reformats were performed. FINDINGS: Lower Chest: Calcified granuloma in the left lower lobe is noted. Minimal scar/atelectasis Vessels: Normal caliber aorta. No periaortic fat stranding Heart: Small amount of anterior pericardial fluid. No evidence of cardiomegaly. Abdomen: Portal vein:Patent Gallbladder: Surgically absent Liver: within normal limits. Pancreas: within normal limits. Spleen: within normal limits. Adrenals: within normal limits. Kidneys: Symmetric enhancement. Stable mild bilateral hydronephrosis. Bilateral ureters have a normal caliber. No hydroureter,. Ureteral fat stranding or renal lithiasis. Left kidney is smaller than the contralateral side, without evidence of cortical thinning and scarring. Peritoneum: No ascites or free air, no fluid collection. Bowel: Limited evaluation due to technique. No evidence of high-grade small bowel obstruction. Ileoce horacio junction is normal. Normal caliber appendix. Scattered fecal material in a nondistended, nondilated colon. Mesentery and Retroperitoneum: No enlarged mesenteric or retroperitoneal lymph nodes. Abdominal Wall: Dehiscent of the anterior abdominal wall without evidence of obvious herniation. Pelvis: Reproductive Organs: Uterus and adnexal structures are unremarkable Pelvis: within normal limits. Bladder: within normal limits. Bones: within normal limits. IMPRESSION: 1. Stable mild bilateral hydronephrosis. Chronic changes in the left kidney with loss of volume/corti horacio thickness. There is evidence of atrophy. 2. No evidence of bowel obstruction. Normal caliber appendix.
--- NOTE | 2018-09-22 11:36 | ULT ---
Ultrasound Doppler duplex carotid: HISTORY: 53-year-old female status post syncope TECHNIQUE: Grayscale, color-flow, and spectral analysis, of major arteries of neck. FINDINGS: Vertebral artery flow is antegrade bilaterally. Little or no plaque is visualized in the carotids. Highest peak systolic velocities in the internal carotid arteries are 90 cm/s on the right and 105 cm /s on the left. IMPRESSION: Normal
[2018-09-22] MEDS ORDERED: Morphine 2 MG/ML SYRINGE SLOW IVP SCH (12:15)
--- NOTE | 2018-09-22 14:15 | HP ---
CHIEF COMPLAINT: Syncope, nausea, and vomiting. HISTORY OF PRESENT ILLNESS: The patient is a 53-year-old female with past medical history significant for intractable nausea and vomiting in the past with recent admission in 05/2018, who presented with similar symptoms yesterday to the ED. 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 She states that she was leaving the restroom when she had a syncopal episode. She denies any prodrome. She states that she may have had an episode of nausea or vomiting in the restroom as well prior to her syncopal event. In any case, she was brought to [facility] for further workup and evaluation. The patient continues to complain of nausea, vomiting, and some epigastric tenderness. In the ER, she was given Haldol, Phenergan, Benadryl, Toradol, and Zofran, the patient continues to complain of some nausea up on the floor. Nursing staff has witnessed intentional gagging by the patient as well. Prior workup at our facility has included both EGD and colonoscopy at her last visit with Dr. Maciel. This revealed esophagitis and exudate consistent with emetogenic injury. During that hospitalization, there was no acute pathology for her nausea and vomiting discovered, and it was felt that some of her symptoms were likely psychiatric induced as she was going through some stress at home including a divorce. Workup this admission has included a brain CT, which was negative for any acute pathology. CT scan with IV contrast of the abdomen and CT revealed stable mild bilateral hydronephrosis and chronic changes in left kidney with evidence of atrophy, which is stable from her last scan. No evidence of bowel obstruction and normal caliber appendix. Lab work was largely unremarkable, but did reveal white blood cell count of 13,000. REVIEW OF SYSTEMS: Twelve-point review of systems performed. The patient at first denied any epigastric pain, but says that she does have some epigastric pain associated with her nausea and vomiting. She denies any chest pain or shortness of breath. She denies any fever or chills. No recent sick contacts. ALLERGIES: NO KNOWN DRUG ALLERGIES. HOME MEDICATIONS: 1. Hydrocodone 10/325 one tablet p.o. t.i.d. 2. Ropinirole 0.25 mg p.o. t.i.d. PAST MEDICAL HISTORY: Significant for restless legs syndrome. Significant for chronic pain secondary to a left ankle injury, which required reconstruction. As mentioned in the HPI, she does have a history of intractable nausea and vomiting with associated esophagitis. Per CT, she does have past medical history significant as well for an atrophied left kidney. SOCIAL HISTORY: The patient has 3 daughters, who are 11, 14, and 16. She denies any drinking or illicit drug use or smoking. She works at the [employer] as an infection control agent. FAMILY HISTORY: Positive for heart disease in her father. Positive for stroke in her brother. PAST SURGICAL HISTORY: section x3, cholecystectomy, and left ankle surgery, status post trauma. PHYSICAL EXAMINATION: VITAL SIGNS: Blood pressure 177/89, pulse 65, O2 saturation is 98% on room air, and temperature 98.5. GENERAL: The patient is a female, who appears her stated age, resting in bed. HEENT: Head is atraumatic and normocephalic. Mucous membranes are moist. The patient has poor dentition. NECK: Supple. No lymphadenopathy. Trachea is midline. No JVD. CV: S1 and S2. Regular rhythm. No appreciable murmurs, rubs, or gallops. LUNGS: Regular respiratory rate and pattern. Clear to auscultation bilaterally. ABDOMEN: Positive bowel sounds. Soft and tender to palpation in the epigastric region. EXTREMITIES: No edema. +2 DP pulses bilaterally. SKIN: Warm and dry. NEUROLOGIC: Cranial nerves II through XII are grossly intact. The patient is nonfocal. PSYCHIATRIC: The patient is alert and oriented x3. Appears anxious. LABORATORY DATA: White blood cell count 13.3, hemoglobin 14.7, hematocrit 43.5, and platelets are 189. Sodium 138, potassium 3.9, BUN 11, and creatinine 0.85. AST, ALT, and alkaline phosphatase all within normal limits. Troponin is negative. Lipase is negative at 12. Urinalysis negative for UTI. IMAGING STUDIES: Brain CT, no evidence of acute intracranial abnormality. CT scan of the abdomen and pelvis as mentioned shows stable mild bilateral hydronephrosis, she does have a small amount of anterior pericardial fluid noted in the heart, along with dehiscent of the anterior abdominal wall without evidence of obvious herniation. ASSESSMENT: 1. Syncope, resolved. 2. Nausea, vomiting, and abdominal pain, unclear etiology. CT scan negative for acute pathology at this time. 3. History of intractable nausea and vomiting in the past, felt to have a possible psychiatric component on last admission, there have been witnessed intentional gagging by the patient this hospitalization. 4. History of esophagitis consistent with emetogenic injury. 5. Restless legs syndrome. 6. Chronic pain, on opioids. PLAN: At this time, we will provide the patient antiemetics and supportive care. We will proceed with syncopal workup including echocardiogram and carotid Dopplers. Brain CT was negative. I have counseled the patient heavily on the risks of bulimia, and she has agreed to stop this behavior. We will continue with pain control and IV fluid resuscitation and advance her diet as tolerated. IV PPI will be given as well. Further recommendations based on hospital course. Job ID: [id number]
[2018-09-22] MEDS ORDERED: Promethazine HCl 25 MG/ML VIAL IM/IV PRN (16:41)
[2018-09-22] MEDS ORDERED: Lactated Ringer's 1,000 ML IV SCH (16:45)
[2018-09-22] MEDS: Mag-Al 1200 mg/1200 mg/30 ML UDCUP PO PRN (17:00)
[2018-09-22] MEDS ORDERED: rOPINIRole HCl 0.25 MG TAB PO SCH (18:00)
[2018-09-22] MEDS: Acetaminophen 500 MG TAB PO PRN (18:16)
[2018-09-22] MEDS: HYDROcodone/Acetaminophen 10/325 mg Tablet PO SCH (18:52)
--- NOTE | 2018-09-22 19:24 | PDOC.EVN ---
Event Note - Event Note Event Note: Patient has had continued abdominal pain, and nausea and vomiting despite maximized antiemetics and supportive care. CT scan shows no acute findings. Per conversation with Dr. Bearden, will consult GI in the morning for further recommendations.
[2018-09-22] MEDS: rOPINIRole HCl 0.25 MG TAB PO SCH (20:48)
[2018-09-22] MEDS ORDERED: Famotidine 20 MG TAB PO SCH (21:00)
[2018-09-23] MEDS: Mag-Al 1200 mg/1200 mg/30 ML UDCUP PO PRN (01:34)
[2018-09-23] MEDS: Lactated Ringer's 1,000 ML IV SCH ×2 (01:35→06:23)
[2018-09-23] MEDS: Acetaminophen 500 MG TAB PO PRN (01:40)
[2018-09-23] MEDS: Promethazine 25 MG TAB PO PRN ×2 (01:40→09:07)
[2018-09-23 05:36] LABS: #Eosinphils 0.1 thou/uL (0.0-0.7); #Lymphocytes 1.8 thou/uL (1.20-3.40); #Neutrophils 13.2 thou/uL (1.40-6.50); %Basophils 0.1 % (0.0-1.0); %Eosinophils 0.6 % (0.0-10.0); %Lymphocytes 11.2 % (21.0-51.0); %Monocytes 6.2 % (0.0-10.0); %Neutrophils 81.9 % (42.0-75.0); Hemoglobin 15.1 g/dL (12.0-16.0); Mean Corpuscular Hemoglobin 33.8 pg (27.0-31.0); Mean Corpuscular Volume 93.8 fL (78.0-98.0); Mean Platelet Volume 8.7 fL (7.4-10.4); Platelet Count 176 thou/uL (130-400); Red Blood Cell (RBC) Count 4.47 mill/uL (4.20-5.40); White Blood Cell (WBC) Count 16.1 thou/uL (4.8-10.8)
[2018-09-23 05:50] LABS: Anion Gap 16 mmol/L (10-20); BUN (Urea Nitrogen) 12 mg/dL (9.8-20.1); Calc. Creatinine Clearance 91 mL/min (70-130); Calcium 9.6 mg/dL (7.8-10.44); Carbon Dioxide 22 mmol/L (22-29); Chloride 98 mmol/L (98-107); Estimated GFR-MDRD 76; Glucose 117 mg/dL (70-105); Potassium 3.5 mmol/L (3.5-5.1); Sodium 132 mmol/L (136-145)
[2018-09-23] MEDS ORDERED: Sodium Chloride 0.9% (PF) 10 ML VIAL FS PRN (07:20)
[2018-09-23] MEDS ORDERED: Sodium Chloride 0.9% 1,000 ML IV SCH (08:45)
[2018-09-23] MEDS ORDERED: Pantoprazole 40 MG VIAL IVP SCH (09:00)
[2018-09-23] MEDS ORDERED: Amlodipine 5 MG TAB PO SCH (09:00)
[2018-09-23] MEDS: rOPINIRole HCl 0.25 MG TAB PO SCH ×2 (09:06→15:04)
[2018-09-23] MEDS: HYDROcodone/Acetaminophen 10/325 mg Tablet PO SCH ×2 (09:06→15:04)
[2018-09-23] MEDS: Ondansetron HCl/PF 8 MG in Sodium Chloride 0.9% 50 ML IVPB SCH ×2 (11:40→15:04)
[2018-09-23 12:28] VITALS: TEMP 98.4
[2018-09-23] MEDS ORDERED: cloNIDine 0.1 MG TAB PO PRN (18:24)
[2018-09-23 19:06] VITALS: BP 123/68
[2018-09-23] MEDS ORDERED: Enoxaparin Sodium 40 MG/0.4 ML SYRINGE SC SCH (21:00)
--- NOTE | 2018-09-26 22:10 | EKG ---
Test Reason : Blood Pressure : / mmHG Vent. Rate : 068 BPM Atrial Rate : 068 BPM P-R Int : 144 ms QRS Dur : 084 ms QT Int : 438 ms P-R-T Axes : 061 046 037 degrees QTc Int : 465 ms Normal sinus rhythm Normal ECG Confirmed by PAULINA AUGUST ([id number]), publications editor AVEL HAQ ([id number] on 09/26/2018 10:09:10 PM Referred By: Confirmed By:PAULNIA AUGUST
== END 2018-09-23 19:24 | disposition home or self-care (01) ==
LOC: ERS 16:15 → ERHOLD 22:16 → 2SW 09-22 08:16
PROVIDERS: ADMIT Internal Medicine; ATTEND Internal Medicine
DX: R55 Syncope and collapse (principal); R11.2 Nausea with vomiting, unspecified; R10.13 Epigastric pain; N13.30 Unspecified hydronephrosis; G25.81 Restless legs syndrome; G89.29 Other chronic pain; Z79.891 Long term (current) use of opiate analgesic; Z79.899 Other long term (current) drug therapy; Z98.890 Other specified postprocedural states
CPT/HCPCS: 36415; 36416; 51701; 70450; 74177; 80048; 80053; 80306; 81003; 81015; 81025; 83690; 84484; 85025; 93005; 93306; 93880; 96361; 96365; 96375; 96376; A4353; C9113; G0378; J0360; J1200; J1630; J1885; J2270; J2405; J2550; Q0169; Q9967; S0028

== ENCOUNTER 2018-09-27 04:28 | Emergency (ER) | payer SELFPAY ==
[2018-09-27] MEDS ORDERED: Ondansetron PF 4 MG/2 ML Vial ONE (05:58)
[2018-09-27] MEDS ORDERED: Lidocaine Viscous Sol 2% 15 ml UD Cup ONE (06:42)
[2018-09-27] MEDS ORDERED: Mag-Al 1200 mg/1200 mg/30 ML UDCUP ONE (06:42)
[2018-09-27] MEDS ORDERED: Dicyclomine 20 MG TAB ONE (06:42)
== END 2018-09-27 07:49 | disposition home or self-care (01) ==
LOC: ERS 04:28
DX: K29.70 Gastritis, unspecified, without bleeding (principal); I10 Essential (primary) hypertension; F32.9 Major depressive disorder, single episode, unspecified; Z79.899 Other long term (current) drug therapy
CPT/HCPCS: 99284; J2405

== ENCOUNTER 2019-10-07 13:41 | Emergency (ER) | payer OTHER, SELFPAY ==
[2019-10-07 14:47] LABS: #Basophils 0.1 thou/uL (0.0-0.2); #Eosinphils 0.1 thou/uL (0.0-0.7); #Lymphocytes 2.5 thou/uL (1.20-3.40); #Monocytes 0.4 thou/uL (0.11-0.59); #Neutrophils 9.6 thou/uL (1.40-6.50); %Basophils 0.8 % (0.0-1.0); %Eosinophils 0.8 % (0.0-10.0); %Lymphocytes 19.5 % (21.0-51.0); %Monocytes 3.1 % (0.0-10.0); %Neutrophils 75.8 % (42.0-75.0); Hemoglobin 16.1 g/dL (12.0-16.0); Mean Corpuscular HGB CONC 33.8 g/dL (32.0-36.0); Mean Corpuscular Volume 97.7 fL (78.0-98.0); Platelet Count 254 thou/uL (130-400); RBC Distribution Width 11.4 % (11.5-14.5); Red Blood Cell (RBC) Count 4.87 mill/uL (4.20-5.40); White Blood Cell (WBC) Count 12.6 thou/uL (4.8-10.8)
[2019-10-07 15:23] LABS: ALT (SGPT) 18 U/L (8-55); AST (SGOT) 26 U/L (5-34); Albumin 5.4 g/dL (3.5-5.0); Alkaline Phosphatase 102 U/L (40-110); Anion Gap 20 mmol/L (10-20); BUN (Urea Nitrogen) 12 mg/dL (9.8-20.1); Bilirubin, Total 1.1 mg/dL (0.2-1.2); Calc. Creatinine Clearance 0 mL/min (70-130); Carbon Dioxide 22 mmol/L (22-29); Chloride 101 mmol/L (98-107); Estimated GFR-MDRD 58; Glucose 239 mg/dL (70-105); Potassium 3.3 mmol/L (3.5-5.1); Protein, Total 9.4 g/dL (6.0-8.3); Sodium 140 mmol/L (136-145)
[2019-10-07] MEDS ORDERED: Lidocaine Viscous Sol 2% 15 ml UD Cup ONE (15:42)
[2019-10-07] MEDS ORDERED: Ondansetron PF 4 MG/2 ML Vial ONE (15:42)
[2019-10-07] MEDS ORDERED: Mag-Al 1200 mg/1200 mg/30 ML UDCUP ONE (15:42)
[2019-10-07 18:43] LABS: Bacteria/HPF None Seen HPF (None Seen); Bilirubin Negative (Negative); Blood, Urine 2+ (Negative); Clarity Clear (Clear); Glucose, Urine (Dipstick) 500 mg/dL (Negative); Ketone, Urine 20 mg/dL (Negative); Leukocyte 25 Leu/uL (Negative); Nitrite Negative (Negative); Pregnancy Test - Urine (BHCG) Negative (Negative); Pregu Control Background? CLEAR/WHITE (CLR/WHITE); Pregu Control Bar Appear? YES (CONTROL BAR); Protein, Urine (Dipstick) 200 mg/dL (Neg-Trace); RBC/HPF 21-50 HPF (0-3); Specific Gravity 1.021 (1.002-1.036); Specific Gravity, Urine 1.021 (1.002-1.036); Urobilinogen Normal mg/dL (Less than 2); pH, Urine 6.5 (5.0-9.0)
== END 2019-10-07 19:47 | disposition home or self-care (01) ==
LOC: ERS 13:41
DX: R11.2 Nausea with vomiting, unspecified (principal); R10.13 Epigastric pain; I10 Essential (primary) hypertension; F32.9 Major depressive disorder, single episode, unspecified; Z79.891 Long term (current) use of opiate analgesic; Z79.899 Other long term (current) drug therapy
CPT/HCPCS: 36415; 36416; 80053; 81003; 81015; 81025; 83690; 84484; 85025; 93005; 96361; 96374; J2405